=== PATIENT | female | born 1965 | race Caucasian/White ===

== ENCOUNTER 2020-11-11 13:05 | Inpatient (IN) ==
[2020-11-11 14:50] LABS: Red Cell Distribution Width 11.9 % (11.5-14.5)
[2020-11-11 14:52] LABS: Basophils % 0.5 %; Eosinophils % 0.5 %; Hemoglobin 16.8 g/dL (11.5-15.4); Immature Granulocytes % 0.3 % (0-4); Immature Platelets 11.2 % (1.1-6.1); Lymphocytes # 2.4 K/mcL (0.6-4.6); Lymphocytes % 40.9 %; Mean Corpuscular HGB Conc 34.3 g/dL (31.6-35.5); Mean Corpuscular Hemoglobin 32.7 pg (28.0-33.3); Mean Corpuscular Volume 95.3 fL (83.0-100.0); Mean Platelet Volume 12.3 fL (9.4-12.4); Monocytes # 0.6 K/mcL (0.0-1.3); Monocytes % 9.7 %; Neutrophils # 2.8 K/mcL (1.6-8.9); Platelet Count 108 K/mcL (140-400); Red Blood Count 5.14 M/mcL (3.82-4.97); Segmented Neutrophils % 48.1 %; White Blood Count 5.8 K/mcL (4.3-11.1)
[2020-11-11] MEDS ORDERED: Isovue-370 500 ML BOTTLE IVP ONE (15:17)
[2020-11-11 15:20] LABS: Platelet Estimate Slight Decrease (Normal)
[2020-11-11 15:22] LABS: Anisocytosis 1+ (Not Present); Large Platelets Present (Not Present)
[2020-11-11 15:33] LABS: Alanine Aminotransferase 47 Units/L (7-52); Albumin 4.2 g/dL (3.5-5.7); Albumin/Globulin Ratio 1.4 (1.1-2.2); Alkaline Phosphatase 70 Units/L (34-104); Aspartate Amino Transferase 50 Units/L (13-39); BUN/Creatinine Ratio 16 (6-26); Bilirubin,Total 0.6 mg/dL (0.3-1.0); Blood Urea Nitrogen 8 mg/dL (6-20); Calcium 10.2 mg/dL (8.6-10.3); Carbon Dioxide 23 mEq/L (23-29); Chloride 102 mEq/L (98-107); Globulin 3.1 g/dL (2.4-3.5); Glucose 220 mg/dL (70-105); Osmolality,Calculated 285 (280-300); Potassium 3.6 mEq/L (3.5-5.1); Sodium 135 mEq/L (136-145); Total Protein 7.3 g/dL (6.4-8.9); eGFR For African Americans > 60 (> 60); eGFR For Non-African Americans > 60 (> 60)
[2020-11-11] MEDS ORDERED: Naloxone 0.4 MG/ML INJ IVP PRN (16:36)
[2020-11-11] MEDS ORDERED: *HR* Dextrose 50 % in Water (Vial) 50 ML VIAL IVP PRN (16:41)
[2020-11-11] MEDS ORDERED: Dextrose Gel 15 GM/37.5 ML TUBE PO PRN ×2 (16:41)
[2020-11-11] MEDS ORDERED: D5% in Water 1,000 ML IVC PRN (16:41)
[2020-11-11] MEDS ORDERED: Nitroglycerin 0.4 MG TAB.SUBL SL PRN (16:42)
[2020-11-11] MEDS ORDERED: Aspirin 325 MG TABLET PO ONE (18:14)
[2020-11-11] MEDS ORDERED: *HR* Labetalol 20 MG/4 ML SYRINGE IVP PRN (18:22)
[2020-11-11] MEDS ORDERED: lisinopriL 10 MG TABLET PO ONE (18:22)
[2020-11-11] MEDS ORDERED: Ringers Solution, Lactated 500 ML IVC SCH (18:30)
[2020-11-11 21:22] LABS: INR 1.2; Prothrombin Time 13.9 Seconds (9.4-12.1)
[2020-11-11 21:35] LABS: Chol/HDL Ratio 4.3 (0-4.9)
[2020-11-11 21:40] LABS: Troponin I 0.25 ng/mL (< 0.04)
[2020-11-11] MEDS ORDERED: *HR* Heparin 5,000 UNIT/ML VIAL IVP ONE (22:13)
[2020-11-11] MEDS ORDERED: *HR* Heparin 5,000 UNIT/ML VIAL IVP PRN ×2 (22:13)
[2020-11-11] MEDS ORDERED: 0.9 % Sodium Chloride 500 ML IVC SCH (23:00)
[2020-11-11] MEDS ORDERED: 0.9 % Sodium Chloride 500 ML IVC ONE (23:00)
[2020-11-11 23:01] LABS: Hematocrit 46.9 % (35.3-44.9); Mean Corpuscular HGB Conc 34.1 g/dL (31.6-35.5); Mean Corpuscular Hemoglobin 32.5 pg (28.0-33.3); Mean Corpuscular Volume 95.1 fL (83.0-100.0); Red Blood Count 4.93 M/mcL (3.82-4.97)
[2020-11-11 23:02] LABS: Immature Platelets 11.3 % (1.1-6.1); Mean Platelet Volume 11.4 fL (9.4-12.4); Red Cell Distribution Width 11.9 % (11.5-14.5); White Blood Count 5.6 K/mcL (4.3-11.1)
[2020-11-11 23:08] LABS: Heparin anti-factor XA UFH < 0.04 IU/mL (0.30-0.70)
[2020-11-11 23:09] LABS: INR 1.2; Prothrombin Time 13.8 Seconds (9.4-12.1)
[2020-11-11] MEDS: Heparin 25,000UNIT/250ML 1/2NS 25,000 UNIT/250 ML IV.SOLN IVC SCH (23:48)
[2020-11-12] MEDS ORDERED: Ondansetron 4 MG/2 ML VIAL IVP PRN (01:28)
[2020-11-12] MEDS ORDERED: *HR* Enoxaparin 40 MG/0.4 ML SYRINGE SQ SCH (06:00)
[2020-11-12 06:16] LABS: Eosinophils % 0.2 %
[2020-11-12 06:18] LABS: Basophils % 0.3 %; Hematocrit 47.1 % (35.3-44.9); Immature Granulocytes % 0.3 % (0-4); Immature Platelets 8.5 % (1.1-6.1); Lymphocytes # 2.8 K/mcL (0.6-4.6); Mean Corpuscular Hemoglobin 33.1 pg (28.0-33.3); Mean Corpuscular Volume 97.5 fL (83.0-100.0); Monocytes # 0.6 K/mcL (0.0-1.3); Monocytes % 10.7 %; Neutrophils # 2.3 K/mcL (1.6-8.9); Platelet Count 116 K/mcL (140-400); Red Blood Count 4.83 M/mcL (3.82-4.97); Segmented Neutrophils % 39.5 %; White Blood Count 5.8 K/mcL (4.3-11.1)
[2020-11-12 06:30] LABS: BUN/Creatinine Ratio 20 (6-26); Blood Urea Nitrogen 11 mg/dL (6-20); Calcium 9.1 mg/dL (8.6-10.3); Carbon Dioxide 24 mEq/L (23-29); Chloride 104 mEq/L (98-107); Glucose 204 mg/dL (70-105); Osmolality,Calculated 287 (280-300); Potassium 3.4 mEq/L (3.5-5.1); Sodium 136 mEq/L (136-145); eGFR For African Americans > 60 (> 60); eGFR For Non-African Americans > 60 (> 60)
[2020-11-12 08:50] LABS: Magnesium 1.6 mg/dL (1.6-2.6); Phosphorous 2.4 mg/dL (2.7-4.5)
[2020-11-12 08:58] LABS: Estimated Average Glucose 229 mg/dl; Hemoglobin A1C 9.6 %
[2020-11-12] MEDS: lisinopriL 20 MG TABLET PO SCH (10:24)
[2020-11-12] MEDS: Insulin LISPRO 300 UNITS/3 ML VIAL SUBQ SCH ×3 (10:37→18:04)
[2020-11-12] MEDS ORDERED: Acetaminophen 325 MG TABLET PO SCH (12:00)
[2020-11-12] MEDS: Dexamethasone 4 MG/ML VIAL IVP SCH (12:39)
[2020-11-12] MEDS: Acetaminophen 325 MG TABLET PO PRN (12:39)
[2020-11-12] MEDS ORDERED: Perflutren Lipid Microsphere 1.3 ML in 0.9 % Sodium Chloride 8.7 ML IVP PRN (12:52)
[2020-11-12] MEDS: Metoprolol XL (24 HR) Succ 25 MG TAB.ER.24H PO SCH (15:11)
[2020-11-12] MEDS: Aspirin Enteric Coated 81 MG Tablet PO SCH (15:11)
[2020-11-12] MEDS: Heparin 25,000UNIT/250ML 1/2NS 25,000 UNIT/250 ML IV.SOLN IVC SCH (22:55)
[2020-11-13 05:25] LABS: Hematocrit 45.1 % (35.3-44.9); Hemoglobin 15.3 g/dL (11.5-15.4); Mean Corpuscular HGB Conc 33.9 g/dL (31.6-35.5); Mean Corpuscular Hemoglobin 32.5 pg (28.0-33.3); Mean Corpuscular Volume 95.8 fL (83.0-100.0); Mean Platelet Volume 11.9 fL (9.4-12.4); Platelet Count 124 K/mcL (140-400); Red Blood Count 4.71 M/mcL (3.82-4.97); Red Cell Distribution Width 11.9 % (11.5-14.5); White Blood Count 4.6 K/mcL (4.3-11.1)
[2020-11-13 05:39] LABS: BUN/Creatinine Ratio 35 (6-26); Blood Urea Nitrogen 17 mg/dL (6-20); Calcium 9.2 mg/dL (8.6-10.3); Carbon Dioxide 22 mEq/L (23-29); Chloride 103 mEq/L (98-107); Glucose 217 mg/dL (70-105); Magnesium 1.9 mg/dL (1.6-2.6); Osmolality,Calculated 286 (280-300); Phosphorous 2.5 mg/dL (2.7-4.5); Potassium 4.4 mEq/L (3.5-5.1); Sodium 134 mEq/L (136-145); eGFR For African Americans > 60 (> 60); eGFR For Non-African Americans > 60 (> 60)
[2020-11-13] MEDS: Dexamethasone 4 MG/ML VIAL IVP SCH (08:29)
[2020-11-13] MEDS: Insulin LISPRO 300 UNITS/3 ML VIAL SUBQ SCH ×3 (08:30→17:22)
[2020-11-13] MEDS: lisinopriL 20 MG TABLET PO SCH (08:31)
[2020-11-13] MEDS: Aspirin Enteric Coated 81 MG Tablet PO SCH (08:31)
[2020-11-13] MEDS: Metoprolol XL (24 HR) Succ 25 MG TAB.ER.24H PO SCH (08:31)
[2020-11-13] MEDS: Heparin 25,000UNIT/250ML 1/2NS 25,000 UNIT/250 ML IV.SOLN IVC SCH (21:18)
[2020-11-13] MEDS: Acetaminophen 325 MG TABLET PO PRN (21:27)
[2020-11-13] MEDS: *HR* Enoxaparin 40 MG/0.4 ML SYRINGE SQ SCH (23:49)
[2020-11-14 05:15] LABS: BUN/Creatinine Ratio 36 (6-26); Blood Urea Nitrogen 16 mg/dL (6-20); Calcium 9.5 mg/dL (8.6-10.3); Carbon Dioxide 22 mEq/L (23-29); Chloride 105 mEq/L (98-107); Glucose 225 mg/dL (70-105); Magnesium 1.9 mg/dL (1.6-2.6); Osmolality,Calculated 286 (280-300); Phosphorous 2.7 mg/dL (2.7-4.5); Potassium 4.1 mEq/L (3.5-5.1); Sodium 134 mEq/L (136-145); eGFR For African Americans > 60 (> 60); eGFR For Non-African Americans > 60 (> 60)
[2020-11-14] MEDS: Metoprolol XL (24 HR) Succ 25 MG TAB.ER.24H PO SCH ×2 (08:32→21:00)
[2020-11-14] MEDS: *HR* Enoxaparin 40 MG/0.4 ML SYRINGE SQ SCH ×2 (08:32→19:55)
[2020-11-14] MEDS: Aspirin Enteric Coated 81 MG Tablet PO SCH (08:33)
[2020-11-14] MEDS: lisinopriL 20 MG TABLET PO SCH (08:33)
[2020-11-14] MEDS: Dexamethasone 4 MG/ML VIAL IVP SCH (08:33)
[2020-11-14] MEDS: Insulin LISPRO 300 UNITS/3 ML VIAL SUBQ SCH ×4 (08:34→21:00)
[2020-11-14 13:05] LABS: Albumin 3.8 g/dL (3.5-5.7); Albumin/Globulin Ratio 1.3 (1.1-2.2); Bilirubin,Indirect 0.5 mg/dL (0.0-1.0); Bilirubin,Total 0.5 mg/dL (0.3-1.0); Globulin 2.9 g/dL (2.4-3.5); Total Protein 6.7 g/dL (6.4-8.9)
[2020-11-15 04:55] LABS: Hematocrit 42.9 % (35.3-44.9); Hemoglobin 14.5 g/dL (11.5-15.4); Mean Corpuscular HGB Conc 33.8 g/dL (31.6-35.5); Mean Corpuscular Volume 97.5 fL (83.0-100.0); Mean Platelet Volume 11.3 fL (9.4-12.4); Platelet Count 159 K/mcL (140-400)
[2020-11-15 04:58] LABS: White Blood Count 7.2 K/mcL (4.3-11.1)
[2020-11-15 04:59] LABS: INR 1.1; Prothrombin Time 12.4 Seconds (9.4-12.1)
[2020-11-15 05:16] LABS: BUN/Creatinine Ratio 28 (6-26); Blood Urea Nitrogen 14 mg/dL (6-20); Calcium 9.7 mg/dL (8.6-10.3); Carbon Dioxide 24 mEq/L (23-29); Chloride 105 mEq/L (98-107); Glucose 201 mg/dL (70-105); Magnesium 1.8 mg/dL (1.6-2.6); Osmolality,Calculated 286 (280-300); Phosphorous 2.7 mg/dL (2.7-4.5); Potassium 4.2 mEq/L (3.5-5.1); Sodium 135 mEq/L (136-145); eGFR For African Americans > 60 (> 60); eGFR For Non-African Americans > 60 (> 60)
[2020-11-15] MEDS: Dexamethasone 4 MG/ML VIAL IVP SCH (09:07)
[2020-11-15] MEDS: Aspirin Enteric Coated 81 MG Tablet PO SCH (09:07)
[2020-11-15] MEDS: lisinopriL 20 MG TABLET PO SCH (09:07)
[2020-11-15] MEDS: Metoprolol XL (24 HR) Succ 25 MG TAB.ER.24H PO SCH ×2 (09:08→21:06)
[2020-11-15] MEDS: *HR* Enoxaparin 40 MG/0.4 ML SYRINGE SQ SCH ×2 (09:08→21:05)
[2020-11-15] MEDS: Insulin LISPRO 300 UNITS/3 ML VIAL SUBQ SCH ×4 (09:09→21:06)
[2020-11-15] MEDS ORDERED: Perflutren Lipid Microsphere 1.3 ML in 0.9 % Sodium Chloride 8.7 ML IVP PRN (09:12)
[2020-11-15] MEDS ORDERED: 0.9 % Sodium Chloride 2,000 ML ONE (13:53)
[2020-11-15] MEDS ORDERED: ISOVUE-370 200 ML INFUS..BTL ONE (13:53)
[2020-11-15] MEDS ORDERED: Heparin 1,000 UNITS/500 mL 500 ML ONE (13:53)
[2020-11-15] MEDS ORDERED: *HR* Heparin 10,000 UNIT/10 ML VIAL ONE (13:53)
[2020-11-15] MEDS ORDERED: Nitroglycerin 1,000 MCG/10 ML VIAL IV ONE (13:54)
[2020-11-15] MEDS ORDERED: *HR* Midazolam HCl 2 MG/2 ML VIAL ONE (14:04)
[2020-11-15] MEDS ORDERED: *HR* FentaNYL (PF) 100 MCG/2 ML VIAL ONE (14:05)
[2020-11-16 04:30] VITALS: BP 133/79
[2020-11-16 06:43] LABS: BUN/Creatinine Ratio 23 (6-26); Blood Urea Nitrogen 14 mg/dL (6-20); Calcium 9.9 mg/dL (8.6-10.3); Carbon Dioxide 25 mEq/L (23-29); Chloride 104 mEq/L (98-107); Glucose 184 mg/dL (70-105); Magnesium 1.9 mg/dL (1.6-2.6); Osmolality,Calculated 285 (280-300); Phosphorous 2.6 mg/dL (2.7-4.5); Potassium 4.4 mEq/L (3.5-5.1); Sodium 135 mEq/L (136-145); eGFR For African Americans > 60 (> 60); eGFR For Non-African Americans > 60 (> 60)
[2020-11-16] MEDS: Insulin LISPRO 300 UNITS/3 ML VIAL SUBQ SCH (08:09)
[2020-11-16] MEDS: lisinopriL 20 MG TABLET PO SCH (08:17)
[2020-11-16] MEDS: Dexamethasone 4 MG/ML VIAL IVP SCH (08:17)
[2020-11-16] MEDS: *HR* Enoxaparin 40 MG/0.4 ML SYRINGE SQ SCH (08:17)
[2020-11-16] MEDS: Metoprolol XL (24 HR) Succ 25 MG TAB.ER.24H PO SCH (08:17)
[2020-11-16] MEDS: Aspirin Enteric Coated 81 MG Tablet PO SCH (08:17)
== END 2020-11-16 13:30 | disposition home health service (06) | DRG 177 ==
LOC: EMEROOARM 13:05 → 3BNU 13:05 → SUATTDRO 11-12 14:38
PROVIDERS: ADMIT Internal Medicine; ATTEND Student in an Organized Health Care Education/Training Program